=== PATIENT | male | born 1990 | race Caucasian/White ===

== ENCOUNTER 2016-08-02 13:57 | Emergency (ER) | payer MEDICAID, OTHER ==
[~2016-08-02] VITALS: Wt 90.0 kg
[~2016-08-02 13:57] MED LIST: NAPR-260 PO; VIC PO; [UNRECOGNIZED DRUG - REMARK] PO
[2016-08-02] MEDS ORDERED: KETOROLAC 15 MG INJ IM STA (16:56)
[2016-08-02] MEDS ORDERED: DIAZEPAM 5 MG TAB PO ONE (17:00)
--- NOTE | 2016-08-02 19:08 | ERD ---
ER Documentation Chief Complaint Date/Time DATE: 08/02/16 TIME: 19:05 Chief Complaint HEADACHE FOR 1 WK. AND VOMITING WITH NO NEURO DEFICIT. HPI Pleasant 26-year-old male patient coming in with right-sided occipital headache and neck pain. 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 Patient denies any poor body ergonomics, denies vision change , has not been seen for headaches in the past. Patient cannot give the exact time that headache started. She reports that this is not the worse headache he has ever experienced ROS All systems reviewed and are negative except as per history of present illness. Medications Home Meds Active Scripts Diazepam* (Valium*) 5 Mg Tablet, 5 MG PO Q8, #10 TAB Prov:HOLLI,TYLOR 08/02/16 Ibuprofen* (Motrin*) 600 Mg Tab, 600 MG PO Q6, #30 TAB Prov:HOLLI,TYLOR 08/02/16 Naproxen* (Naprosyn*) 500 Mg Tablet, 500 MG PO BID Y for PAIN AND/OR INFLAMMATION, #30 TAB Prov:MARYAM CESAR PA-C 01/15/16 Reported Medications [Antibiotics, Doesn't Remember Name] TAB No Conflict Check, PO 12/10/11 Acetaminophen/Hydrocodone (Vicodin) 1 Tab Tab, 1 TAB PO PRN 12/10/11 Allergies Allergies: Coded Allergies: No Known Allergy (Unverified , 12/12/11) PMhx/Soc History of Surgery: No Anesthesia Reaction: No Hx Neurological Disorder: No Hx Respiratory Disorders: No Hx Cardiac Disorders: No Hx Psychiatric Problems: No Hx Miscellaneous Medical Probl: No Hx Alcohol Use: Yes (SOCIAL ) Hx Substance Use: No Hx Tobacco Use: Yes (1/2 A DAY) Smoking Status: Never smoker Physical Exam Vitals Vital Signs Date Time Temp Pulse Resp B/P Pulse Ox O2 Delivery O2 Flow Rate FiO2 08/02/16 19:27 102 16 125/70 100 Room Air 08/02/16 14:08 98.8 102 20 130/81 98 Vital signs stable, nursing notes reviewed Physical Exam Const: No acute distress Head: Atraumatic Eyes: Conjunctiva clear, no pallor or jaundice, PERRLA, EOMI ENT: Normal External Ears, Nose and Mouth. Neck: Full range of motion..~ No meningismus. 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 Flexion and extension intact bilaterally. Psych: Normal Mood and Affect Results 24 hrs Current Medications Medications (Trade) Dose Ordered Sig/Ray Route PRN Reason Start Time Stop Time Status Last Admin Dose Admin Ketorolac Tromethamine (Toradol) 15 mg ONCE STAT IM 08/02/16 16:56 08/02/16 16:58 DC 08/02/16 17:03 Diazepam (Valium) 5 mg ONCE ONCE PO 08/02/16 17:00 08/02/16 17:01 DC 08/02/16 17:03 Procedures/MDM Pleasant 26-year-old male patient comes in today reporting right-sided occipital headache waxing and waning for the past week. Patient has history of headaches in the past. 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 Neurological evaluation is normal. Patient treated for pain with Toradol and Valium. Patient reassessed after 20 minutes with improvement of symptoms. Pain has decreased on pain scale to 5/10. I feel the patient is stable for discharge at this time. I have discussed results, examination findings, the treatment plan with the patient and family present prior to discharge. Patient instructed to use medication as prescribed, apply cold packs as needed to head. Reassurance that neurological evaluation is normal but stressed indications for emergent reevaluation, headache not responding to treatment, blurred vision, nausea, vomiting side effects of medication were also discussed. All questions were answered. Patient verbalizes understanding and agrees with plan of care. Departure Condition: Good HOLLIREDTYLOR Aug 02, 2016 19:08
[2016-08-02] MEDS ORDERED: IBUP-1542 PO (19:10)
[2016-08-02] MEDS ORDERED: DIAZ-90 PO (19:11)
[2016-08-02 19:27] VITALS: BP 125/70; PULSE 102; RESP 16
== END 2016-08-02 19:28 | disposition home or self-care (01) ==
LOC: FTE 13:57
DX: R51 Headache (principal); F17.210 Nicotine dependence, cigarettes, uncomplicated; R11.10 Vomiting, unspecified
CPT/HCPCS: J1885; Z7610

== ENCOUNTER 2016-11-09 05:34 | Emergency (ER) | payer MEDICAID, OTHER ==
[~2016-11-09] VITALS: Ht 175.3 cm; Wt 87.0 kg
[~2016-11-09 05:34] MED LIST changes: +DIAZ-90 PO; +IBUP-1542 PO
[2016-11-09 05:45] VITALS: Ht 175.3 cm; Wt 87.0 kg
[2016-11-09] MEDS ORDERED: SOD CHLORIDE 0.9% 1,000 ML IV STA (06:26)
[2016-11-09] MEDS ORDERED: morphine 4 MG/ML VIAL IV STA (06:26)
[2016-11-09] MEDS ORDERED: ONDANSETRON 4 MG INJ IV STA (06:26)
[2016-11-09 06:56] LABS: ADD SCAN DIFF NO
[2016-11-09 07:00] LABS: BASOPHIL # 0.1 10^3/ul (0.0-0.1); BASOPHILS % 0.4 % (0.0-2.0); EOSINOPHILS # 0.4 10^3/ul (0.0-0.5); EOSINOPHILS % 2.8 % (0.0-7.0); LYMPHOCYTES # 1.5 10^3/ul (0.8-2.9); LYMPHOCYTES % 12.1 % (15.0-51.0); MEAN CORPUSCULAR HEMOGLOBIN 28.5 pg (29.0-33.0); MEAN CORPUSCULAR HGB CONC 33.3 g/dl (32.0-37.0); MEAN CORPUSCULAR VOLUME 85.6 fl (82.0-101.0); MEAN PLATELET VOLUME 9.4 fl (7.4-10.4); MONOCYTE # 0.8 10^3/ul (0.3-0.9); MONOCYTES % 6.4 % (0.0-11.0); NEUTROPHIL # 9.9 10^3/ul (1.6-7.5); NEUTROPHILS % 77.8 % (39.0-77.0); PLATELET COUNT 411 10^3/UL (140-415); RED BLOOD COUNT 5.26 10^6/ul (4.70-6.10); RED CELL DISTRIBUTION WIDTH 13.7 % (11.5-14.5); WHITE BLOOD COUNT 12.7 10^3/ul (4.8-10.8)
[2016-11-09 07:02] LABS: ADD UMIC YES; URINE BILIRUBIN (Dip) NEGATIVE (NEGATIVE); URINE BLOOD (Dip) TRACE (NEGATIVE); URINE COLOR LT. YELLOW (YELLOW); URINE GLUCOSE (Dip) NEGATIVE (NEGATIVE); URINE KETONES (Dip) NEGATIVE (NEGATIVE); URINE LEUKOCYTE ESTERASE (Dip) NEGATIVE (NEGATIVE); URINE NITRITE (Dip) NEGATIVE (NEGATIVE); URINE TOTAL PROTEIN (Dip) NEGATIVE (NEGATIVE); URINE UROBILINOGEN (Dip) 0.2 E.U./dL (0.1-1.0)
[2016-11-09 07:13] LABS: MUCUS,URINE MANY; URINE RBCS 0-2 /HPF (0)
[2016-11-09 07:31] LABS: ALBUMIN 5.5 g/dl (3.3-4.9); ALBUMIN/GLOBULIN RATIO 1.57; BILIRUBIN,INDIRECT 0.3 mg/dl (0-1.1); BILIRUBIN,TOTAL 0.3 mg/dl (0.2-1.3); CALCIUM 10.1 mg/dl (8.4-10.2); CREATININE 0.99 mg/dl (0.61-1.24)
[2016-11-09] MEDS ORDERED: KETOROLAC 15 MG INJ IV STA (07:45)
[2016-11-09] MEDS ORDERED: METOCLOPRAMIDE 10 MG INJ IV ONE (08:00)
--- NOTE | 2016-11-09 08:52 | RADRPT ---
PROCEDURE: CT abdomen and pelvis without contrast. CLINICAL INDICATION: Abdominal pain TECHNIQUE: CT scan of the abdomen and pelvis without contrast was performed on the multislice CT s WHATT . No intravenous contrast was administered. 3-D sagittal and coronal reformatted images wer e obtained from the axial source images. One or more of the following post reduction techniques were used: - Automated exposure control. - Adjustment of the mA and/or Kv according to patient's size. - Use of iterative reconstruction technique DLP 970 mGycm. CTDI vol 15.33 mGy COMPARISON: None. FINDINGS: The lung bases are clear. Evaluation of the solid organs is limited due to lack of intravenous contrast. There is mild fatty infiltration of the liver. There is no biliary ductal dilatation. The spleen, adrenal glands, pancreas, gallbladder are normal. The kidneys are normal in size with no evidence of hydronephrosis. There are tiny bilateral nonobstr ucting stones in the kidneys. The aorta is normal in caliber and there is no ascites or retroperitoneal adenopathy. There is no bowel obstruction. The urinary bladder is normal. No pelvic masses or pelvic lymphadenopathy seen. There is no free fl uid. There is mild sigmoid diverticulosis. The bony pelvis is intact. The appendix is normal. RPTAT: AA IMPRESSION: Tiny bilateral nonobstructing stones in the kidneys. No evidence of hydronephrosis. Mild sigmoid diverticulosis with no evidence of diverticulitis. Fatty infiltration of the liver. .Arnaldo Arevalo MD, Date Time Electronically viewed and signed by .Arnaldo Arevalo MD, MD on 11/09/2016 08:51 .S/
[2016-11-09] MEDS ORDERED: ONDA4TAB14 PO (09:02)
[2016-11-09] MEDS ORDERED: HYDR-906 PO (09:02)
--- NOTE | 2016-11-09 09:09 | ERD ---
ER Documentation Chief Complaint Date/Time DATE: 11/09/16 TIME: 09:05 Chief Complaint abd pain, NV, diarrhea HPI This is a 26-year-old male presenting to the emergency department with a chief complaint of abdominal pain, nausea, vomiting and diarrhea since Tuesday. Patient states that he has been having a lot of diarrhea since Tuesday with generalized abdominal pain rating it 9 out of 10, achy. Patient stated that he had started having episodes of nonbilious nonbloody vomiting this morning. He states that he feels as if it has worsened. He denies any symptoms of dysuria, fevers, penile discharge. He denies any past medical history. Denies taking any medications for the ROS All systems reviewed and are negative except as per history of present illness. Medications Home Meds Active Scripts Ondansetron (Ondansetron Odt) 4 Mg Tab.rapdis, 4 MG PO Q6H Y for NAUSEA AND/OR VOMITING, #10 TAB Prov:MAME CORTEZ PA-C 11/09/16 Hydrocodone/Acetaminophen ([place] 5-325 Tablet) 1 Each Tablet, 1 TAB PO Q6H Y for PAIN, #20 TAB Prov:MAME CORTEZ PA-C 11/09/16 Diazepam* (Valium*) 5 Mg Tablet, 5 MG PO Q8, #10 TAB Prov:HOLLI,TYLOR 08/02/16 Ibuprofen* (Motrin*) 600 Mg Tab, 600 MG PO Q6, #30 TAB Prov:HOLLI,TYLOR 08/02/16 Naproxen* (Naprosyn*) 500 Mg Tablet, 500 MG PO BID Y for PAIN AND/OR INFLAMMATION, #30 TAB Prov:MARYAM CESAR PA-C 01/15/16 Reported Medications [Antibiotics, Doesn't Remember Name] TAB No Conflict Check, PO 12/10/11 Acetaminophen/Hydrocodone (Vicodin) 1 Tab Tab, 1 TAB PO PRN 12/10/11 Allergies Allergies: Coded Allergies: No Known Allergy (Unverified , 12/12/11) PMhx/Soc Medical and Surgical Hx: pt denies Medical Hx, pt denies Surgical Hx History of Surgery: No Anesthesia Reaction: No Hx Neurological Disorder: No Hx Respiratory Disorders: No Hx Cardiac Disorders: No Hx Psychiatric Problems: No Hx Miscellaneous Medical Probl: No Hx Alcohol Use: Yes (SOCIAL ) Hx Substance Use: No Hx Tobacco Use: Yes (1/2 A DAY) Smoking Status: Current every day smoker Physical Exam Vitals Vital Signs Date Time Temp Pulse Resp B/P Pulse Ox O2 Delivery O2 Flow Rate FiO2 11/09/16 05:45 97.9 78 18 157/92 98 Physical Exam GENERAL: well-developed/well-nourished, in no apparent distress, non-toxic appearing HENT: NC/AT, moist mucous membranes EYES: Conjunctiva normal NECK: Supple, no lymphadenopathy PULM: CTA bilaterally, no rales, rhonchi, or wheezing heard CV: Normal S1S2, RRR, good capillary refill GI: Soft, non-distended, tender to palpation in all quadrants, tender to palpation mostly in the left lower quadrant Normal bowel sounds, no masses or organomegaly felt on exam No gross peritonitis, no bruits Negative Rovsing, negative [place], negative McBurney's point, Negative CVAT BACK: No masses EXT: No clubbing, cyanosis, or edema NEURO: Alert and Orientated SKIN: Intact, normal turgor PSYCH: Normal mood and mentation Result Diagram: 11/09/16 0630 11/09/16 0630 Results 24 hrs Laboratory Tests Test 11/09/16 06:30 White Blood Count 12.710^3/ul Red Blood Count 5.2610^6/ul Hemoglobin 15.0g/dl Hematocrit 45.0% Mean Corpuscular Volume 85.6fl Mean Corpuscular Hemoglobin 28.5pg Mean Corpuscular Hemoglobin Concent 33.3g/dl Red Cell Distribution Width 13.7% Platelet Count 17223^3/UL Mean Platelet Volume 9.4fl Neutrophils % 77.8% Lymphocytes % 12.1% Monocytes % 6.4% Eosinophils % 2.8% Basophils % 0.4% Nucleated Red Blood Cells % 0.0/100WBC Neutrophils # 9.910^3/ul Lymphocytes # 1.510^3/ul Monocytes # 0.810^3/ul Eosinophils # 0.410^3/ul Basophils # 0.110^3/ul Nucleated Red Blood Cells # 0.010^3/ul Urine Color LT. YELLOW Urine Clarity CLEAR Urine pH 6.0 Urine Specific [place] 1.025 Urine Ketones NEGATIVE Urine Nitrite NEGATIVE Urine Bilirubin NEGATIVE Urine Urobilinogen 0.2 E.U./dL Urine Leukocyte Esterase NEGATIVE Urine Microscopic RBC 0-2/HPF Urine Microscopic WBC 0-2/HPF Urine Calcium Oxalate Crystals OCCASIONAL Urine Mucus MANY Urine Hemoglobin TRACE Urine Glucose NEGATIVE% Urine Total Protein NEGATIVE Sodium Level 147mmol/L Potassium Level 4.0mmol/L Chloride Level 105mmol/L Carbon Dioxide Level 27mmol/L Anion Gap 19 Blood Urea Nitrogen 18mg/dl Creatinine 0.99mg/dl Glucose Level 107mg/dl Calcium Level 10.1mg/dl Total Bilirubin 0.3mg/dl Direct Bilirubin 0.00mg/dl Indirect Bilirubin 0.3mg/dl Aspartate Amino Transf (AST/SGOT) 33IU/L Alanine Aminotransferase (ALT/SGPT) 56IU/L Alkaline Phosphatase 64IU/L Total Protein 9.0g/dl Albumin 5.5g/dl Globulin 3.50g/dl Albumin/Globulin Ratio 1.57 Lipase 71U/L Current Medications Medications (Trade) Dose Ordered Sig/Ray Route PRN Reason Start Time Stop Time Status Last Admin Dose Admin Sodium Chloride (NS) 1,000 ml @ 1,000 mls/hr Q1H STAT IV 11/09/16 06:26 11/09/16 07:25 DC 11/09/16 06:44 Morphine Sulfate (morphine) 6 mg ONCE STAT IV 11/09/16 06:26 11/09/16 06:28 DC 11/09/16 06:43 Ondansetron HCl (Zofran Inj) 4 mg ONCE STAT IV 11/09/16 06:26 11/09/16 06:28 DC 11/09/16 06:44 Ketorolac Tromethamine (Toradol) 15 mg ONCE STAT IV 11/09/16 07:45 11/09/16 07:46 DC 11/09/16 08:00 Metoclopramide HCl (Reglan) 10 mg ONCE ONCE IV 11/09/16 08:00 11/09/16 08:01 DC 11/09/16 08:00 Procedures/[facility] This is a 26-year-old male patient with vomiting and diarrhea, likely due to viral gastroenteritis vs food poisoning. Patient was also found to have nephrolithiasis and diverticulosis on CT. Low suspicion for pseudomembranous colitis, diverticulitis, appendicitis, cholecystitis, pancreatitis, or other abdominal emergencies or acute cardiopulmonary conditions due to physical examination and diagnostic testing. IV access established, patient was given Zofran, morphine and Toradol with some relief. He was given 1 L fluids with improvement of symptoms and nausea. Labs were drawn, CBC did not show any evidence of leukocytosis or anemia. CMP did not show any liver, renal, or electrolyte abnormalities. Lipase was unremarkable. UA was unremarkable for urinary tract infection. CT abd and pelvis without contrast: Tiny bilateral nonobstructing stones in the kidneys. No evidence of hydronephrosis. Mild sigmoid diverticulosis with no evidence of diverticulitis. Fatty infiltration of the liver. Patient is hemodynamically stable for discharge. Prescription Zofran and [place] was given. Discussed to increase fluids. Discussed to return to the ED if not improving as expected or for any worsening conditions. Patient understood and agreed with this plan. Departure Diagnosis: Primary Impression: Nausea vomiting and diarrhea Additional Impressions: Diverticulosis Nephrolithiasis Condition: Stable Patient Instructions: Understanding Kidney Stones, Preventing Kidney Stones, Diet, Vomiting Or Diarrhea [6Yr-Adult], Gastroenteritis, Viral (6Y-Adult), Diverticulosis Additional Instructions: FOLLOW UP WITH YOUR PRIMARY CARE PHYSICIAN TOMORROW.Return to this facility if you are not improving as expected. Take all medicines as directed. You have been given a medicine which may cause drowsiness.DO NOT DRIVE OR OPERATE DANGEROUS MACHINERY while taking this medicine! Return to this facility if you are not improving as expected. MAME CORTEZ PA-C Nov 09, 2016 09:09
== END 2016-11-09 09:11 | disposition home or self-care (01) ==
LOC: FTE 05:34
DX: R11.2 Nausea with vomiting, unspecified (principal); R19.7 Diarrhea, unspecified; K57.90 Diverticulosis of intestine, part unspecified, without perforation or abscess without bleeding; N20.0 Calculus of kidney; F17.210 Nicotine dependence, cigarettes, uncomplicated
CPT/HCPCS: 36415; 74176; 80053; 81001; 83690; 85025; 96374; 96375; J1885; J2270; J2405; J2765; J7030; Z7502